=== PATIENT | female | born 1995 | race Caucasian/White ===

== ENCOUNTER 2021-07-02 06:44 | Emergency (ER) | payer OTHER ==
[~2021-07-02] VITALS: Ht 165.1 cm; Wt 49.9 kg
--- NOTE | 2021-07-02 06:50 | NUR ---
PRESENTED TO THE ER FOR EVALUATION OF N/V AND DIZZINESS. PT HAD A ORAL SX 6 DAYS AGO FOR CYST REMOVAL AND ON CLINDAMYCIN POST OP. DENIED A SYNCOPAL EPISODE, PLACED IN BED 9 ER ON MONITOR. VSS. WILL CONT TO MONITOR ,
[2021-07-02] MEDS ORDERED: ONDANSETRON HCL/PF 4 MG/2 ML VIAL ONE (06:57)
[2021-07-02] MEDS: ONDANSETRON HCL/PF 4 MG/2 ML VIAL IVP ONE (07:04)
[2021-07-02] MEDS: IV NS 0.9% 1,000 ML BAG IV ONE (07:04)
--- NOTE | 2021-07-02 07:35 | NUR ---
THE PATIENT IS RECEIVED IN ER BED #9. ALERT AND ORIENTED X4. WILL CONTINUE TO MONITOR THE PATIENT.
[2021-07-02 07:38] LABS: BASOPHILS % (AUTO) 0.7 % (0.0-2.0); EOSINOPHILS % (AUTO) 0.4 % (0.0-6.0); HEMATOCRIT 34 % (33-45); HEMOGLOBIN 12.4 g/dL (11.5-14.8); LYMPHOCYTES # (AUTO) 0.9 K/uL (0.8-4.8); LYMPHOCYTES % (AUTO) 24.2 % (20.0-44.0); MEAN CORPUSCULAR HGB CONC 36 g/dl (31.0-36.0); MEAN CORPUSCULAR VOLUME 89 fL (82-100); MONOCYTES # (AUTO) 0.3 K/uL (0.1-1.30); MONOCYTES % (AUTO) 7.7 % (2.0-12.0); NEUTROPHILS # (AUTO) 2.6 K/uL (1.8-8.9); PLATELET COUNT (AUTO) 218 K/uL (150-450); RED BLOOD CELL COUNT(AUTO) 3.82 MIL/uL (4.0-5.2); WHITE BLOOD COUNT (AUTO) 3.8 K/uL (4.3-11.0)
[2021-07-02 07:39] LABS: ALBUMIN 3.6 g/dL (3.4-5.0); BILIRUBIN,DIRECT 0.1 mg/dL (0.0-0.2); BILIRUBIN,TOTAL 0.5 mg/dL (0.2-1.0); CREATININE 0.7 mg/dL (0.6-1.3); POTASSIUM 3.3 mmol/L (3.5-5.1); TOTAL PROTEIN, SERUM 6.6 g/dL (6.4-8.2)
--- NOTE | 2021-07-02 07:39 | NUR ---
URINE COLLECTED AND SENT TO THE LAB
--- NOTE | 2021-07-02 07:57 | NUR ---
THE PATIENT DENIES PAIN AT THIS TIME.
[2021-07-02 08:17] LABS: BILIRUBIN,URINE NEGATIVE (NEGATIVE); LEUKOCYTE ESTERASE ,URINE NEGATIVE (NEGATIVE); NITRITE, URINE NEGATIVE (NEGATIVE); PH,URINE 6.5 (5.0-8.0); PROTEIN,URINE NEGATIVE (NEGATIVE); UGLUCOSE NEGATIVE (NEGATIVE); UROBILINOGEN,URINE 0.2 EU/dL (0.2)
[2021-07-02 08:18] LABS: COLOR,URINE STRAW (YELLOW)
[2021-07-02] MEDS ORDERED: ONDA4TAB5 PO (08:19)
--- NOTE | 2021-07-02 08:34 | NUR ---
The patient alert and oriented x4. Denies pain. In room air and denies SOB. Respiration regular and unlabored. Denies N/V. IV removed. Catheter intact and site benign. Pressure and 4x4 applied to site. No bleeding noted.Patient discharged to home in stable condition. Written and verbal after care instructions given. Patient verbalizes understanding of instruction.
[2021-07-02 08:55] VITALS: BP 110/72
[2021-07-02 11:24] LABS: BACTERIA,URINE Moderate /HPF (None Seen); RBC,URINE 0-2 /HPF (0-2); SQUAMOUS EPITHELIAL CELL,UR Few /HPF (None Seen); WBC,URINE 0-2 /HPF (0-3)
== END 2021-07-02 08:55 | disposition home or self-care (01) ==
LOC: ER 07:03
DX: R55 Syncope and collapse (principal); R11.2 Nausea with vomiting, unspecified; R19.7 Diarrhea, unspecified; E86.0 Dehydration; R00.0 Tachycardia, unspecified; T36.8X5A Adverse effect of other systemic antibiotics, initial encounter; Z88.2 Allergy status to sulfonamides; Y92.89 Other specified places as the place of occurrence of the external cause
CPT/HCPCS: 36415; 80048; 80076; 81001; 82962; 83690; 84703; 85025; 87086; 93005; 96361; 96374; 99284; J2405; J7030